=== PATIENT | male | born 1980 | race African-American/Black ===

== ENCOUNTER 2022-12-20 07:40 | Emergency (ER) | payer OTHER ==
[2022-12-20 07:47] VITALS: RESP 16; BMI 22.3
[2022-12-20 09:48] LABS: BASO % 1.1 % (0-2.0); EOS % 8.1 % (0-4.5); HEMATOCRIT 48.4 % (35.4-49); HEMOGLOBIN 15.7 GM/dL (11.7-16.9); LYMPH % 31.7 % (8-40); MCH 26.1 pg (25.7-33.7); MCHC 32.3 g/dl (32.0-35.9); MEAN CELL VOLUME 80.9 fl (80-96); MEAN PLT VOLUME 8.2 fl (7.5-11.1); MONO % 7.1 % (3.8-10.2); PLATELET COUNT 266 10^3/uL (134-434); RBC 5.99 M/mm3 (4.00-5.60); WHITE BLOOD COUNT 5.3 K/mm3 (4.0-10.0)
[2022-12-20 10:21] LABS: CALCIUM 9.4 mg/dL (8.5-10.1)
[2022-12-20 10:25] LABS: CREATININE 1.3 mg/dL (0.55-1.3)
[2022-12-20 10:26] LABS: BLOOD UREA NITROGEN 16.4 mg/dL (7-18)
[2022-12-20 10:27] LABS: BILIRUBIN,TOTAL 0.4 mg/dL (0.2-1); TOT PROT 7.8 g/dl (6.4-8.2)
[2022-12-20 13:12] VITALS: TEMP 97.7
[2022-12-20 13:38] VITALS: BP 167/103; PULSE 70
== END 2022-12-20 14:44 | disposition home or self-care (01) ==
LOC: JER 07:40
DX: R06.02 Shortness of breath (principal); R07.89 Other chest pain; R05.9 Cough, unspecified; Z20.822 Contact with and (suspected) exposure to COVID-19
CPT/HCPCS: 0241U-QW; 36415; 71046-TC-FY; 80053; 83880; 84484; 85025; 85379; 93005; 93010; 99285-25